=== PATIENT | male | born 1975 | race Caucasian/White ===

== ENCOUNTER 2023-12-15 11:35 | Emergency (ER) | payer OTHER ==
[~2023-12-15] VITALS: Ht 177.8 cm; Wt 113.6 kg
[2023-12-15 11:45] VITALS: BP 167/105; TEMP 98
[2023-12-15] MEDS ORDERED: CEPHALEXIN500 M1 PO (12:54)
[2023-12-15 13:11] VITALS: PULSE 68
== END 2023-12-15 13:11 | disposition home or self-care (01) ==
LOC: COL.ER 11:35
DX: S62.633A Displaced fracture of distal phalanx of left middle finger, initial encounter for closed fracture (principal); W20.8XXA Other cause of strike by thrown, projected or falling object, initial encounter